=== PATIENT | male | born 1985 | race Caucasian/White ===

== ENCOUNTER 2020-06-02 00:04 | Emergency (ER) | payer BC ==
[2020-06-02] MEDS ORDERED: ASPIRIN 325 MG TABLET ONE (00:53)
== END 2020-06-02 01:03 | disposition home or self-care (01) ==
LOC: EDH 00:04
DX: J06.9 Acute upper respiratory infection, unspecified (principal); Z88.8 Allergy status to other drugs, medicaments and biological substances

== ENCOUNTER 2022-01-22 03:57 | Emergency (ER) | payer BC, OTHER ==
[~2022-01-22] VITALS: Ht 180.3 cm; Wt 95.3 kg
[2022-01-22] MEDS ORDERED: KETOROLAC 30MG VIAL (30MG/ML) IVP ONE (05:00)
[2022-01-22] MEDS ORDERED: 0.9%NACL 1000ML 1,000 ML IV ONE (05:00)
[2022-01-22] MEDS ORDERED: DiphenhydrAMINE HCL 50 MG/ML VIAL IV ONE (05:00)
[2022-01-22] MEDS ORDERED: PROCHLORPERAZINE 10MG/2ML INJ IV ONE (05:00)
[2022-01-22 06:31] VITALS: BP 128/78
== END 2022-01-22 06:28 | disposition home or self-care (01) ==
LOC: EDH 03:57
DX: G43.909 Migraine, unspecified, not intractable, without status migrainosus (principal); R11.0 Nausea; Z79.1 Long term (current) use of non-steroidal anti-inflammatories (NSAID)
CPT/HCPCS: 99284; 96374; 96375; 96361; J1200; J7030; J0780; J1885

== ENCOUNTER 2022-03-14 12:32 | Emergency (ER) | payer OTHER ==
[~2022-03-14] VITALS: Ht 180.3 cm; Wt 97.5 kg
[2022-03-14] MEDS ORDERED: CLOT45CR62 VG (13:56)
[2022-03-14 14:07] VITALS: BP 132/79
== END 2022-03-14 14:12 | disposition home or self-care (01) ==
LOC: EDH 12:32
DX: B35.3 Tinea pedis (principal); Z88.8 Allergy status to other drugs, medicaments and biological substances

== ENCOUNTER 2022-05-16 09:09 | Emergency (ER) | payer OTHER ==
[~2022-05-16] VITALS: Ht 180.3 cm; Wt 90.7 kg
[~2022-05-16 09:09] MED LIST: CLOT45CR62 VG
[2022-05-16 09:10] VITALS: BP 137/85
[2022-05-16] MEDS ORDERED: ACETAMINOPHEN 500 MG TABLET PO STA (10:03)
[2022-05-16] MEDS ORDERED: 0.9%NACL 1000ML 1,000 ML IV ONE (10:30)
[2022-05-16 10:36] LABS: BASOPHILS % (AUTO) 0.6 % (0.0-5.0); EOSINOPHILS % (AUTO) 2.7 % (0.0-8.0); HEMATOCRIT 37.3 % (42-54); LYMPHOCYTES % (AUTO) 36.3 % (21.0-51.0); MEAN CORPUSCULAR HEMOGLOBIN 31.5 pg (27.0-33.0); MEAN CORPUSCULAR HGB CONC 35.4 g/dL (32.0-36.0); NEUTROPHILS % (AUTO) 54.2 % (40.0-77.0); PLATELET COUNT (AUTO) 179 K/uL (130-400); RED BLOOD CELL COUNT(AUTO) 4.19 MIL/uL (4.50-6.20); RED CELL DISTRIBUTION WIDTH 12.1 % (11.0-15.5); WHITE BLOOD COUNT (AUTO) 5.2 K/uL (4.8-10.8)
[2022-05-16 10:51] LABS: ALBUMIN 3.9 g/dL (3.5-5.0); CREATININE 0.9 mg/dL (0.5-1.5); POTASSIUM 4.2 mmol/L (3.5-5.1); TOTAL PROTEIN, SERUM 6.9 g/dL (6.0-8.3)
[2022-05-16] MEDS ORDERED: KETOROLAC 30MG VIAL (30MG/ML) IVP STA (11:22)
[2022-05-16] MEDS ORDERED: AMOX1TAB16 PO (12:04)
[2022-05-16] MEDS ORDERED: NAPR500T6 PO (12:04)
== END 2022-05-16 12:12 | disposition home or self-care (01) ==
LOC: EDH 09:09
DX: J32.9 Chronic sinusitis, unspecified (principal); G43.909 Migraine, unspecified, not intractable, without status migrainosus; Z88.8 Allergy status to other drugs, medicaments and biological substances; Z20.822 Contact with and (suspected) exposure to COVID-19
CPT/HCPCS: 99283; 96374; 87635; 96361; 82550; 80053; 85025; 87880; 87804 ×2; 36415; C9803; J7030; J1885

== ENCOUNTER 2022-12-22 09:39 | Emergency (ER) | payer OTHER ==
[~2022-12-22] VITALS: Ht 180.3 cm; Wt 95.3 kg
[~2022-12-22 09:39] MED LIST changes: +AMOX1TAB16 PO; +NAPR500T6 PO
[2022-12-22] MEDS ORDERED: TETRACAINE HCL 0.5% 4 ML OPHTH SOLN ONE (09:53)
[2022-12-22] MEDS ORDERED: FLUORESCEIN SODIUM 1 STRIP STRIP ONE (09:53)
[2022-12-22] MEDS ORDERED: FLUORESCEIN SODIUM 1 STRIP STRIP OP SCH (10:00)
[2022-12-22] MEDS ORDERED: TETRACAINE HCL 0.5% 4 ML OPHTH SOLN OP SCH (10:00)
[2022-12-22 10:12] VITALS: BP 120/72; PULSE 72; RESP 17; O2SAT 99
[2022-12-22] MEDS ORDERED: KETO.5OS OD (10:46)
[2022-12-22] MEDS ORDERED: CILO2.5OS OD (10:46)
== END 2022-12-22 11:18 | disposition home or self-care (01) ==
LOC: EDH 09:39
DX: H57.89 Other specified disorders of eye and adnexa (principal); G43.909 Migraine, unspecified, not intractable, without status migrainosus; Z88.8 Allergy status to other drugs, medicaments and biological substances